=== PATIENT | male | born 1980 | race Caucasian/White ===

== ENCOUNTER 2018-06-06 04:27 | Emergency (ER) | payer OTHER ==
[~2018-06-06] VITALS: Ht 182.9 cm; Wt 104.3 kg
[2018-06-06] MEDS ORDERED: ONDANSETRON ODT 4 MG TAB PO ONE ×2 (05:31→05:45)
[2018-06-06] MEDS ORDERED: MVI in SODIUM CHLORIDE 0.9% 1,010 ML IV ONE (06:40)
[2018-06-06] MEDS ORDERED: LORazepam 2MG/ML-1ML VIAL IV ONE (06:45)
[2018-06-06] MEDS ORDERED: THIAMINE 100mg/ml INJ (200mg/2ml VIAL) IV ONE (06:45)
[2018-06-06 07:45] LABS: Basophils # (auto) 0.1 uL; Basophils % (auto) 0.9 % (0.0-2.0); Eosinophils # (auto) 0.2 uL; Eosinophils % (auto) 2.7 % (0.0-7.0); Hematocrit 48.4 % (41.0-53.0); Hemoglobin 17.1 g/dL (13.5-17.5); Lymphocytes # (auto) 2.3 uL; Lymphocytes % (auto) 26.3 % (10.0-50.0); Mean Corpuscular Hemoglobin 30.7 pg (28.0-32.0); Mean Corpuscular Hgb Conc. 35.3 g/dL (32.0-36.0); Mean Corpuscular Volume 86.9 fL (80.0-100.0); Monocytes # (auto) 0.5 uL; Monocytes % (auto) 5.7 % (0.0-12.0); Neutrophils # (auto) 5.6 uL; Neutrophils % (auto) 64.4 % (37.0-80.0); Nucleated Red Blood Cells % 0.2 %; Platelet Count (auto) 411 10^3/uL (140-450); Red Blood Cells 5.57 10^6/uL (4.5-5.90); Red Cell Distribution Width 13.2 % (11.8-14.3); White Blood Cell 8.6 10^3/uL (4.4-10.8)
[2018-06-06 08:02] LABS: Albumin 4.2 g/dL (3.4-5.0); BUN/Creatinine Ratio 13.3; Calcium 8.8 mg/dL (8.5-10.1); Potassium 3.8 mmol/L (3.5-5.1)
[2018-06-06] MEDS: MAGNESIUM SULFATE 1GM/100ML 100 ML IV SCH ×2 (08:02→08:59)
[2018-06-06 08:05] LABS: Bilirubin, Total 0.9 mg/dL (0.2-1.0); Total Protein 8.3 g/dL (6.4-8.2)
[2018-06-06 10:24] VITALS: BP 118/72
[2018-06-06 11:02] LABS: Urine Bacteria NONE SEEN /hpf (None Seen); Urine Blood Negative /uL (Negative); Urine Mucus MANY (None Seen); Urine Specific Gravity 1.021 (1.001-1.035); Urine WBC 11 /hpf (0 - 3)
[2018-06-06 11:12] LABS: Barbiturate Scree,Urine NEGATIVE (NEGATIVE); Benzodiazephine Screen, Urine NEGATIVE (NEGATIVE); Cannabinoid Screen, Urine POSITIVE (NEGATIVE); Cocaine Screen, Urine NEGATIVE (NEGATIVE); Opiate Scree,Urine NEGATIVE (NEGATIVE); Phencyclidine Screen, Urine NEGATIVE (NEGATIVE)
[2018-06-06 11:21] LABS: Amphetamine Screen, Urine POSITIVE (NEGATIVE)
== END 2018-06-06 12:18 | disposition home or self-care (01) ==
LOC: ER 04:31
DX: F10.239 Alcohol dependence with withdrawal, unspecified (principal); F15.10 Other stimulant abuse, uncomplicated; F12.90 Cannabis use, unspecified, uncomplicated; F17.210 Nicotine dependence, cigarettes, uncomplicated
CPT/HCPCS: 36415; 80053; 80307; 80320; 81001; 83690; 85025; 94761; 96365; 96375; 99285; J2060; J3411; J3475; Q0162; 96366

== ENCOUNTER 2018-06-11 04:42 | Emergency (ER) | payer MEDICAID, OTHER ==
[~2018-06-11] VITALS: Ht 182.9 cm; Wt 90.7 kg
[2018-06-11] MEDS ORDERED: ONDANSETRON ODT 4 MG TAB PO ONE ×2 (05:30→14:45)
[2018-06-11 05:57] LABS: Basophils # (auto) 0.1 uL; Basophils % (auto) 0.7 % (0.0-2.0); Monocytes # (auto) 0.9 uL; Monocytes % (auto) 6.1 % (0.0-12.0)
[2018-06-11 05:59] LABS: Eosinophils # (auto) 0.4 uL; Eosinophils % (auto) 2.7 % (0.0-7.0); Hematocrit 51.1 % (41.0-53.0); Hemoglobin 17.5 g/dL (13.5-17.5); Lymphocytes # (auto) 4.1 uL; Lymphocytes % (auto) 27.2 % (10.0-50.0); Mean Corpuscular Hgb Conc. 34.3 g/dL (32.0-36.0); Mean Corpuscular Volume 84.6 fL (80.0-100.0); Neutrophils # (auto) 9.5 uL; Neutrophils % (auto) 63.3 % (37.0-80.0); Nucleated Red Blood Cells % 0.5 %; Platelet Count (auto) 487 10^3/uL (140-450); Red Blood Cells 6.04 10^6/uL (4.5-5.90); Red Cell Distribution Width 13.1 % (11.8-14.3)
[2018-06-11 06:14] LABS: Albumin 4.4 g/dL (3.4-5.0); Calcium 8.3 mg/dL (8.5-10.1); Potassium 3.3 mmol/L (3.5-5.1)
[2018-06-11 06:17] LABS: BUN/Creatinine Ratio 19.1
[2018-06-11 06:20] LABS: Salicylate < 1.7 mg/dL (2.8-20.0)
[2018-06-11 06:21] LABS: Acetaminophen < 2.0 ug/mL (10-30)
[2018-06-11 06:31] LABS: Bilirubin, Total 1.5 mg/dL (0.2-1.0); Total Protein 8.1 g/dL (6.4-8.2)
[2018-06-11] MEDS ORDERED: SODIUM CHLORIDE 0.9% 1,000 ML IVB ONE (08:09)
[2018-06-11] MEDS ORDERED: FAMOTIDINE 20 MG TAB PO ONE (08:15)
[2018-06-11] MEDS ORDERED: DONNATAL 5ml ORAL Elix (BELLADONNA ALK-PHENOBARB) PO ONE (08:15)
[2018-06-11] MEDS ORDERED: ALUM & MAG HYDROX-SIMETH LIQ(MAALOX) 30 ML PO ONE (08:15)
[2018-06-11] MEDS ORDERED: PROMETHAZINE HCL 25 MG/ML 1ML IV PRN (08:15)
[2018-06-11] MEDS ORDERED: MORPHINE SULFATE 4 MG/ML SYR/VIAL IV ONE (08:15)
[2018-06-11] MEDS ORDERED: LORazepam 2MG/ML-1ML VIAL IV ONE ×3 (08:15→14:45)
[2018-06-11 08:58] LABS: Amphetamine Screen, Urine NEGATIVE (NEGATIVE); Barbiturate Scree,Urine NEGATIVE (NEGATIVE); Cannabinoid Screen, Urine POSITIVE (NEGATIVE); Cocaine Screen, Urine NEGATIVE (NEGATIVE); Opiate Scree,Urine NEGATIVE (NEGATIVE); Phencyclidine Screen, Urine NEGATIVE (NEGATIVE)
[2018-06-11 09:03] LABS: Urine Bacteria NONE SEEN /hpf (None Seen); Urine Blood 2+ /uL (Negative); Urine Mucus MANY (None Seen); Urine Specific Gravity 1.023 (1.001-1.035); Urine WBC 4 /hpf (0 - 3)
[2018-06-11 09:07] LABS: Benzodiazephine Screen, Urine NEGATIVE (NEGATIVE)
[2018-06-11] MEDS ORDERED: LORazepam 2MG/ML-1ML VIAL ONE (10:07)
[2018-06-11] MEDS ORDERED: TETANUS-DIPTH-ACEL PERTUSSIS 0.5ML SYRG IM ONE (13:15)
[2018-06-11] MEDS ORDERED: ONDANSETRON HCL 4 MG/2 ML VIAL IV ONE (13:15)
[2018-06-11] MEDS ORDERED: LORazepam 0.5 MG TAB PO ONE ×2 (14:45→20:00)
[2018-06-11] MEDS: LORazepam 0.5 MG TAB PO PRN (18:16)
[2018-06-11] MEDS ORDERED: IBUPROFEN 600 MG TAB PO ONE (20:00)
[2018-06-11] MEDS: busPIRone HCL 10 MG TAB PO SCH (22:38)
[2018-06-11] MEDS: hydrOXYzine 25 MG TAB or CAP PO SCH (22:38)
[2018-06-12] MEDS ORDERED: PROMETHAZINE HCL 25 MG/ML 1ML IM ONE (04:00)
[2018-06-12] MEDS: LORazepam 0.5 MG TAB PO PRN ×3 (04:08→15:07)
[2018-06-12] MEDS ORDERED: ONDANSETRON ODT 4 MG TAB PO ONE (09:00)
[2018-06-12] MEDS: busPIRone HCL 10 MG TAB PO SCH (10:19)
[2018-06-12] MEDS: hydrOXYzine 25 MG TAB or CAP PO SCH (10:19)
[2018-06-12 16:49] VITALS: BP 129/85
== END 2018-06-12 11:52 | disposition short-term general hospital (02) ==
LOC: ER 04:42
DX: S63.502A Unspecified sprain of left wrist, initial encounter (principal); S90.812A Abrasion, left foot, initial encounter; R45.851 Suicidal ideations; F10.10 Alcohol abuse, uncomplicated; F12.10 Cannabis abuse, uncomplicated; E87.6 Hypokalemia; F17.210 Nicotine dependence, cigarettes, uncomplicated; F15.10 Other stimulant abuse, uncomplicated; X58.XXXA Exposure to other specified factors, initial encounter; Y93.89 Activity, other specified; Y99.8 Other external cause status; Y92.89 Other specified places as the place of occurrence of the external cause
CPT/HCPCS: 36415; 71045; 73110; 73130; 73630; 80053; 80307; 80320; 80329; 81001; 83690; 83735; 85025; 90471; 90715; 93005; 96361; 96372; 96374; 96375; 96376; 99285; J2060; J2270; J2550; Q0162